=== PATIENT | male | born 1980 | race Caucasian/White ===

== ENCOUNTER 2017-01-15 14:46 | Emergency (ER) | payer MEDICAID ==
[~2017-01-15] VITALS: Ht 177.8 cm; Wt 89.0 kg
[2017-01-15] MEDS ORDERED: HYDROCODONE/ACETAMINOPHEN 5/325MG TABLET PO ONE (18:00)
[2017-01-15] MEDS ORDERED: KETOROLAC 60MG/2ML VIAL IM ONE (19:15)
[2017-01-15 20:14] VITALS: BP 125/70
== END 2017-01-15 20:18 | disposition home or self-care (01) ==
LOC: ER 14:56
DX: M25.572 Pain in left ankle and joints of left foot (principal)
CPT/HCPCS: 73610; 73630; 96372; 99284; J1885; Z7610

== ENCOUNTER 2017-05-29 00:42 | Emergency (ER) | payer MEDICAID ==
[~2017-05-29] VITALS: Ht 175.3 cm; Wt 93.0 kg
[2017-05-29] MEDS ORDERED: FLUORESCEIN SODIUM 1MG/STRIP OP SCH (03:00)
[2017-05-29] MEDS ORDERED: TETRACAINE 0.5% OPHTH DROPS 4ML OP SCH (03:00)
[2017-05-29] MEDS ORDERED: BALANCED SALT IRRIG SOLN 15ML IO SCH (03:00)
[2017-05-29 04:30] VITALS: BP 99/57
== END 2017-05-29 04:41 | disposition home or self-care (01) ==
LOC: ER 01:15
DX: H16.8 Other keratitis (principal); F17.200 Nicotine dependence, unspecified, uncomplicated
CPT/HCPCS: 99283